=== PATIENT | male | born 1930 | race Caucasian/White ===

== ENCOUNTER 2017-01-07 10:04 | Emergency (ER) | payer MEDICARE, OTHER ==
[~2017-01-07 10:04] MED LIST: ADULT ASPIRIN81 MG PO; ADULT LOW DOSE81 M1 PO; ARTIFICIAL TEAR15 M OP; ASPIR 8181 M1 PO; ATIVAN0.5 MG PO; BENICAR40 MG PO; COUMADIN5 M1 PO; COUMADIN5 M2 PO; COUMADIN5 MG PO; COUMADIN6 MG PO; COUMADIN7.5 MG PO; CYMBALTA30 MG PO; CYMBALTA60 M1 PO; CYMBALTA60 MG PO; DILTIAZEM 24HR180 M4 PO; DILTIAZEM 24HR180 MG PO; FIBER PO; FOLGARD TABLET1 EAC1 PO; GABAPENTIN100 MG PO; GABAPENTIN300 M1 PO; GABAPENTIN300 MG PO; ISOPTO TEARS15 M1 EACH EYE; ISOPTO TEARS15 ML OP; KEPPRA500 M1 PO; KEPPRA500 M3 PO; LATANOPROST2.5 M1 LEFT EYE; LATANOPROST2.5 ML LEFT EYE; LEVOTHROID50 MCG PO; LEVOTHYROXINE75 MC3 PO; MILK OF MA400 MG/5 M PO; MIRALAX17 G1 PO; MIRALAX17 G2 PO; MIRTAZAPINE15 M1 PO; MIRTAZAPINE15 MG PO; MIRTAZAPINE30 M1 PO; NEXIUM40 M1 PO; NEXIUM40 MG PO; NITROGLYCERIN0.4 MG SL; NORCO 5/325 TAB1 TAB PO; NORCO 5/3251 TA1 PO; NORCO 5/3251 TAB PO; NUCYNTA50 MG PO; PRAVASTATIN SOD40 M1 PO; PRAVASTATIN SOD40 MG PO; REMERON30 M1 PO; REMERON30 MG PO; REMERON45 M1 PO; REQUIP0.25 MG PO; ROPINIROLE HC0.25 M1 PO; ROPINIROLE HC0.25 MG PO; TIAZAC180 MG PO; TYLENOL TA325 MG/TA2 PO; TYLENOL325 M1 PO; TYLENOL325 M2 PO; WARFARIN SODIUM5 MG PO; XALATAN2.5 ML OP; [UNRECOGNIZED DRUG - OTHER] PO
[2017-01-07] MEDS ORDERED: XALATAN2.5 M1 LEFT EYE (10:35)
[2017-01-07 10:54] LABS: BASO % 0.5 % (0-2); EOS % 2.3 % (0-7); EOSINOPHIL ABSOLUTE COUNT 0.1 tho/cmm (0.0-0.7); HCT-HEMATOCRIT 36.6 % (36.0-53.5); HGB-HEMOGLOBIN 12.5 gm/dl (13.5-17.0); IMMATURE GRANULOCYTES ABSOLUTE 0.01 tho/cmm (0-0.03); IMMATURE GRANULOCYTES PERCENT 0.2 % (0-0.3); LYMPH % 29.7 % (20-45); LYMPH ABSOLUTE COUNT 1.7 tho/cmm (0.8-4.5); MCH (MEAN CORPUSCULAR HGB) 29.5 pg (28.0-32.0); MCHC MEAN CORPUSCULAR HGB CONC 34.2 % (32.0-36.0); MCV (MEAN CELL VOLUME) 86.3 fl (82.0-96.0); MEAN PLATELET VOLUME 9.3 cmc (9.4-12.4); MONO % 7.7 % (0-12); MONOCYTE ABSOLUTE COUNT 0.4 tho/cmm (0.0-1.2); NEUTROPHIL ABSOLUTE COUNT 3.3 tho/cmm (1.6-8.0); NEUTROPHIL-AUTOMATED 3.3 tho/cmm (1.6-8.0); NEUTROPHILS % 59.6 % (40-80); PLATELET COUNT 159 tho/cmm (150-450); RED BLOOD COUNT 4.24 mil/cmm (4.40-5.70); RED CELL DISTRIBUTION WIDTH 13.5 % (12.4-16.4); WHITE BLOOD COUNT 5.6 tho/cmm (4.0-10.0)
[2017-01-07 11:04] LABS: ANION GAP 10 mmol/L (0-20); BLOOD UREA NITROGEN 16 mg/dl (6-24); CARBON DIOXIDE-VENOUS 27 mmol/L (22-32); CHLORIDE 108 mmol/l (96-110); CREATININE 0.99 mg/dl (0.60-1.30); GLUCOSE 111 mg/dL (70-110); POTASSIUM 4.2 mmol/L (3.7-5.1); SODIUM 141 mmol/L (135-145); eGFR VALUE FOR BLACK 79 mL/Min
[2017-01-07 11:38] LABS: INR 2.8 INR (0.9-1.1); PROTHROMBIN TIME 33.1 SECONDS (9.0-13.6)
== END 2017-01-07 12:51 ==
LOC: EDMED 10:04
PROVIDERS: Physician Assistant
PROC: 0S9D3ZZ Drainage of Left Knee Joint, Percutaneous Approach (ICD-10-PCS; principal; 2017-01-07)
DX: M66.0 Rupture of popliteal cyst (principal); I25.10 Atherosclerotic heart disease of native coronary artery without angina pectoris; Z79.82 Long term (current) use of aspirin; Z79.899 Other long term (current) drug therapy